=== PATIENT | male | born 1955 | race Caucasian/White ===

== ENCOUNTER 2021-08-13 05:03 | Day surgery (SDC) | payer OTHER ==
[2021-08-13] VITALS (9 sets, daily range): BP systolic 125–166; BP diastolic 60–77
[~2021-08-13] VITALS: Ht 172.7 cm; Wt 86.4 kg
[2021-08-13] MEDS ORDERED: LIDOcaine 1% w/EPI 1:100,000 30ml vial (MDV) ONE (05:37)
[2021-08-13] MEDS ORDERED: NO HOME MEDS (05:42)
[2021-08-13] MEDS ORDERED: vancomycin 1,000mg inj ONE (05:52)
[2021-08-13] MEDS ORDERED: fentaNYL/PF 50MCG/1 ML 2ML syringe ONE (06:04)
[2021-08-13] MEDS ORDERED: midazolam 1 mg/ML 2ml injection ONE ×2 (06:04→06:40)
[2021-08-13] MEDS ORDERED: ceFAZolin 1000mg inj ONE (06:04)
[2021-08-13] MEDS ORDERED: normal saline 1000ml 1,000 ML IV SCH (06:05)
[2021-08-13] MEDS ORDERED: ceFAZolin/D5W- 1GM premix 50 ML IV ONE (06:05)
[2021-08-13 06:13] LABS: EOSINOPHILS # (AUTO) 0.1 X10'3 (0-0.9); EOSINOPHILS % (AUTO) 1.3 % (0-6); MEAN PLATELET VOLUME 10.3 FL (7.4-10.4); WHITE BLOOD COUNT 6.7 X10'3 (4.5-11.0)
[2021-08-13] MEDS ORDERED: ceFAZolin 2gm in dextrose, iso 50 ML IV ONE (06:16)
[2021-08-13 06:17] LABS: BASOPHILS % (AUTO) 0.7 % (0-1); HEMATOCRIT 43.6 % (42.0-52.0); HEMOGLOBIN 14.9 g/dl (14.0-17.9); LYMPHOCYTES # (AUTO) 2.2 X10'3 (1.1-4.8); LYMPHOCYTES % (AUTO) 33.4 % (21-51); MEAN CORPUSCULAR HEMOGLOBIN 31.3 PG (27.0-31.0); MEAN CORPUSCULAR HGB CONC 34.2 g/dL (33.0-36.5); MEAN CORPUSCULAR VOLUME 91.5 FL (78-98); MONOCYTES # (AUTO) 0.6 X10'3 (0-0.9); MONOCYTES % (AUTO) 8.5 % (2-12); NEUTROPHILS # (AUTO) 3.7 X10'3 (1.8-7.7); NEUTROPHILS % (AUTO) 56.1 % (42-75); PLATELET COUNT 166 X10'3 (140-440); RED BLOOD COUNT 4.77 X10'6 (4.70-6.10); RED CELL DISTRIBUTION WIDTH 13.5 % (11.5-14.5)
[2021-08-13 06:18] LABS: APTT 31 SECONDS (22-32)
[2021-08-13 06:40] LABS: ALBUMIN 3.8 G/DL (3.4-5.0); ANION GAP 8 (8-16); BLOOD UREA NITROGEN 16 MG/DL (7-18); BUN/CREATININE RATIO 13.4 (5.4-32.0); CHLORIDE 105 MMOL/L (99-107); CREATININE 1.19 MG/DL (0.60-1.10); GLUCOSE 90 MG/DL (70-104); POTASSIUM 4.4 MMOL/L (3.5-5.1); SODIUM 140 MMOL/L (135-145); TOTAL CARBON DIOXIDE 26.6 MMOL/L (24-32); eGFR 61 ML/MIN
[2021-08-13 06:42] LABS: LARGE PLATELETS FEW; PLATELET ESTIMATE NORMAL
[2021-08-13] MEDS ORDERED: normal saline 1000ml 400 ML IV ONE (07:54)
--- NOTE | 2021-08-13 09:31 | NUR ---
Pt ambulated in room and to the restroom, voided. Pt denies dizziness, sob, pain. Pt ate 100% if breakfast tray. 250ml oral fluid intake.
== END 2021-08-13 10:30 | disposition home or self-care (01) ==
LOC: SSTAY O 05:03
PROVIDERS: ATTEND Internal Medicine Interventional Cardiology
DX: I44.1 Atrioventricular block, second degree (principal); I10 Essential (primary) hypertension; Z87.891 Personal history of nicotine dependence; Z79.01 Long term (current) use of anticoagulants; Z79.899 Other long term (current) drug therapy
CPT/HCPCS: 33208; 36415; 80048; 85025; 85610; 85730; 93005; 99152; 99153; C1785; C1898; J0690; J2250; J3010; J3370; J3490; J7030; 85008; A4565; A4620; A6258

== ENCOUNTER 2023-07-30 06:41 | Day surgery (SDC) | payer MEDICARE, OTHER ==
[2023-07-23 16:33] LABS: BASOPHILS % (AUTO) 0.7 % (0-1); EOSINOPHILS # (AUTO) 0.1 X10'3 (0-0.9); EOSINOPHILS % (AUTO) 1.8 % (0-6); LYMPHOCYTES # (AUTO) 2.5 X10'3 (1.1-4.8); LYMPHOCYTES % (AUTO) 32.6 % (21-51); MEAN CORPUSCULAR HEMOGLOBIN 31.3 PG (27.0-31.0); MEAN CORPUSCULAR HGB CONC 33.3 g/dL (33.0-36.5); MEAN PLATELET VOLUME 9.2 FL (7.4-10.4); MONOCYTES # (AUTO) 0.6 X10'3 (0-0.9); MONOCYTES % (AUTO) 7.9 % (2-12); NEUTROPHILS # (AUTO) 4.3 X10'3 (1.8-7.7); PRE OP HEMATOCRIT 46.6 % (42.0-52.0); PRE OP HEMOGLOBIN 15.5 g/dL (14.0-17.9); PRE OP PLATELET COUNT 147 X10'3 (140-440); PRE OP WHITE BLOOD COUNT 7.6 10'3 (4.8-10.8); RED BLOOD COUNT 4.96 X10'6 (4.70-6.10); RED CELL DISTRIBUTION WIDTH 13.9 % (11.5-14.5)
[2023-07-23 16:43] LABS: BILIRUBIN,URINE NEGATIVE (Neg); CLARITY,URINE CLEAR (Clear); COLOR,URINE STRAW (Yellow); GLUCOSE, URINE NEGATIVE (Neg); KETONES,URINE NEGATIVE (Neg); LEUKOCYTE ESTERASE ,URINE NEGATIVE (Neg); NITRITES, URINE NEGATIVE (Neg); OCCULT BLOOD,URINE NEGATIVE (Neg); PROTEIN,URINE NEGATIVE (Neg); UROBILINOGEN,URINE 0.2 E.U/dL (0.2-1.0)
[2023-07-23 16:45] LABS: UA COLLECTION TYPE CLN CATCH MIDSTREAM
[2023-07-23 17:12] LABS: ALBUMIN 3.5 G/DL (3.4-5.0); ALBUMIN/GLOBULIN RATIO 1.1 (1.1-1.5); ALKALINE PHOSPHATASE 80 IU/L (46-116); BLOOD UREA NITROGEN 22 MG/DL (7-18); BUN/CREATININE RATIO 22.9 (10.0-20.0); CALCIUM 8.3 MG/DL (8.5-10.1); CHLORIDE 99 MMOL/L (99-107); CREATININE 0.96 MG/DL (0.60-1.10); PRE OP ALT 33 U/L (30-65); PRE OP ANION GAP 7 (8-16); PRE OP AST 27 U/L (10-37); PRE OP GLUCOSE 82 MG/DL (70-104); PRE OP POTASSIUM 4.8 MMOL/L (3.4-5.1); TOTAL CARBON DIOXIDE 22.8 MMOL/L (24-32); TOTAL PROTEIN 6.7 G/DL (6.4-8.2); eGFR 78 ML/MIN
[2023-07-23 17:13] LABS: PRE OP SODIUM 129 MMOL/L (135-145)
[2023-07-30] VITALS (19 sets, daily range): BP systolic 88–121; BP diastolic 55–78; PULSE 60–96; RESP 10–19; TEMP 98.1; O2SAT 96–100
[~2023-07-30] VITALS: Ht 175.3 cm; Wt 77.1 kg
[~2023-07-30 06:41] MED LIST: BISO5TAB29 PO; DOCUMENT DATE & TIME OF BETA-BLOCKER PO ONE; SACU1TAB PO; cefazolin 2gm/D5W 100mL 100 ML IV ONE; famotidine 20mg tablet PO ONE; ringers solution, lacted 1,000 ML IV SCH
[2023-07-30] MEDS ORDERED: ringers solution, lacted 1,000 ML IV SCH (07:55)
[2023-07-30] MEDS ORDERED: ondansetron/PF 4mg/2ml inj IV PRN (07:55)
[2023-07-30] MEDS ORDERED: labetalol 20mg/4ml (5mg/ml) syringe IV PRN (07:55)
[2023-07-30] MEDS ORDERED: morphine 4 MG/ML inj SYRINge IV PRN (07:55)
[2023-07-30] MEDS ORDERED: meperidine/PF 25mg/ml syringe IV PRN ×3 (07:55)
[2023-07-30] MEDS ORDERED: enalaprilat dihydrate 2.5mg/2ml vial IV PRN (07:55)
[2023-07-30] MEDS ORDERED: proCHLORperazine 10 MG/2 ml inj IV PRN (07:55)
[2023-07-30] MEDS ORDERED: morphine 2 MG/ML inj. syringe IV PRN (07:55)
[2023-07-30 08:30] LABS: ISTAT CREATININE 1.1 mg/dL (0.8-1.3); ISTAT HGB 17.3 g/dl (14.0-17.9); ISTAT IONIZED CALCIUM 1.12 mmol/L (1.03-1.32); ISTAT K 5.3 mmol/L (3.5-5.1); POC BUN/CREATININE RATIO 18.2 (5.4-32.0)
[2023-07-30] MEDS ORDERED: BUPIVAcaine 2.5mg/ml inj 50ml vial (contains preservative) ONE (09:33)
[2023-07-30] MEDS ORDERED: glycopyrrolate 0.2mg/ml inj ONE (10:25)
[2023-07-30] MEDS ORDERED: dexamethasone sod phosphate 10mg/ml inj ONE (10:25)
[2023-07-30] MEDS ORDERED: neostigmine methylsulfate 1 MG/ML 10ml vial ONE (10:25)
[2023-07-30] MEDS ORDERED: sevoflurane 250ml liquid IH ONE (10:25)
[2023-07-30] MEDS ORDERED: propofol inj 20 ML IV ONE (10:32)
[2023-07-30] MEDS ORDERED: rocuronium 10mg/ml inj IV ONE (10:32)
[2023-07-30] MEDS ORDERED: midazolam 1 mg/ML 2ml injection ONE (10:32)
[2023-07-30] MEDS ORDERED: fentaNYL/PF 50MCG/1 ML 2ML syringe ONE (10:32)
[2023-07-30] MEDS ORDERED: LIDOcaine 1%/PF 5ML 10 MG/ML VIAL ONE (10:48)
[2023-07-30] MEDS ORDERED: BUPIVAcaine 2.5mg/ml inj 50ml vial (contains preservative) SQ ONE (11:13)
[2023-07-30] MEDS ORDERED: meperidine/PF 25mg/ml syringe ONE (11:50)
[2023-07-30] MEDS ORDERED: ondansetron/PF 4mg/2ml inj ONE (11:52)
[2023-07-30] MEDS ORDERED: HYDROcodone/acetaminophen 10/325mg tab PO ONE (13:50)
[2023-07-30] MEDS ORDERED: LidoCAINE 2% Topical Jelly 11mL syringe MM STA (16:45)
== END 2023-07-30 17:20 | disposition home or self-care (01) ==
LOC: PAS 06:41
PROVIDERS: ATTEND Surgery
DX: K40.90 Unilateral inguinal hernia, without obstruction or gangrene, not specified as recurrent (principal); D17.79 Benign lipomatous neoplasm of other sites; I49.5 Sick sinus syndrome; E78.5 Hyperlipidemia, unspecified; I10 Essential (primary) hypertension; I35.0 Nonrheumatic aortic (valve) stenosis; Z95.0 Presence of cardiac pacemaker; Z87.891 Personal history of nicotine dependence; Z79.899 Other long term (current) drug therapy; Z72.89 Other problems related to lifestyle; Z82.49 Family history of ischemic heart disease and other diseases of the circulatory system
CPT/HCPCS: 22903; 36415; 49650; 80047; 80053; 81003; 85025; C1781; J0690; J1100; J2175; J2250; J2405; J2704; J2710; J3010; J3490; J7030; J7120; Z7506; Z7508; Z7512; 88304; A4215; A4314; A4618

== ENCOUNTER 2023-08-06 13:06 | Emergency (ER) | payer MEDICARE ==
[~2023-08-06] VITALS: Ht 172.7 cm; Wt 79.3 kg
[~2023-08-06 13:06] MED LIST changes: -DOCUMENT DATE & TIME OF BETA-BLOCKER PO ONE; -cefazolin 2gm/D5W 100mL 100 ML IV ONE; -famotidine 20mg tablet PO ONE; -ringers solution, lacted 1,000 ML IV SCH
[2023-08-06 13:07] VITALS: TEMP 98.6
[2023-08-06 16:07] VITALS: BP 144/89; PULSE 62; O2SAT 97
[2023-08-06 19:21] VITALS: RESP 16
[2023-08-06] MEDS ORDERED: iohexol 350MG/ML 100ml bottle IV ONE (21:32)
[2023-08-06 22:02] LABS: BASOPHILS % (AUTO) 0.4 % (0-1); EOSINOPHILS # (AUTO) 0.1 X10'3 (0-0.9); EOSINOPHILS % (AUTO) 1.6 % (0-6); HEMATOCRIT 49.4 % (42.0-52.0); HEMOGLOBIN 16.9 g/dl (14.0-17.9); LYMPHOCYTES % (AUTO) 34.5 % (21-51); MEAN CORPUSCULAR HEMOGLOBIN 31.8 PG (27.0-31.0); MEAN CORPUSCULAR HGB CONC 34.3 g/dL (33.0-36.5); MEAN CORPUSCULAR VOLUME 92.8 FL (78-98); MEAN PLATELET VOLUME 8.9 FL (7.4-10.4); MONOCYTES # (AUTO) 0.6 X10'3 (0-0.9); MONOCYTES % (AUTO) 7.2 % (2-12); NEUTROPHILS % (AUTO) 56.3 % (42-75); PLATELET COUNT 222 X10'3 (140-440); RED BLOOD COUNT 5.33 X10'6 (4.70-6.10); RED CELL DISTRIBUTION WIDTH 13.4 % (11.5-14.5); WHITE BLOOD COUNT 8.8 X10'3 (4.5-11.0)
[2023-08-06 22:10] LABS: ALANINE AMINOTRANSFERASE 28 U/L (12-78); ALBUMIN 4.5 G/DL (3.4-5.0); ALBUMIN/GLOBULIN RATIO 1.2 (1.1-1.5); ALKALINE PHOSPHATASE 95 IU/L (46-116); ANION GAP 10 (8-16); APTT 30 SECONDS (22-32); ASPARTATE AMINO TRANSFERASE 22 U/L (10-37); BILIRUBIN,TOTAL 1.6 MG/DL (0.1-1.0); BLOOD UREA NITROGEN 19 MG/DL (7-18); CALCIUM 9.4 MG/DL (8.5-10.1); CHLORIDE 96 MMOL/L (99-107); GLUCOSE 88 MG/DL (70-104); POTASSIUM 4.3 MMOL/L (3.5-5.1); PROTHROMBIN TIME 10.6 SECONDS (9.0-12.0); SODIUM 133 MMOL/L (135-145); TOTAL CARBON DIOXIDE 27.3 MMOL/L (24-32); TOTAL PROTEIN 8.3 G/DL (6.4-8.2); eCRCL 68 ML/MIN; eGFR 74 ML/MIN
[2023-08-06 22:18] LABS: URINE AMPHETAMINE SCREEN NEGATIVE (Neg); URINE BARBITUATE SCREEN NEGATIVE (Neg); URINE BENZODIAZEPINES SCREEN NEGATIVE (Neg); URINE CANNABINOID SCREEN NEGATIVE (Neg); URINE COCAINE SCREEN NEGATIVE (Neg); URINE METHADONE SCREEN NEGATIVE (Neg); URINE OPIATE SCREEN NEGATIVE (Neg); URINE PHENCYCLIDINE SCREEN NEGATIVE (Neg)
== END 2023-08-07 00:07 | disposition home or self-care (01) ==
LOC: ER 13:06
DX: G43.809 Other migraine, not intractable, without status migrainosus (principal); R79.1 Abnormal coagulation profile; Z79.899 Other long term (current) drug therapy
CPT/HCPCS: 36415; 70450; 70496; 70498; 80053; 80305; 85025; 85610; 85730; 99285; J3490; Q9967